=== PATIENT | male | born 1955 | race African-American/Black ===

== ENCOUNTER 2019-02-01 17:48 | Emergency (ER) | payer MEDICARE, MEDICAID ==
[~2019-02-01] VITALS: Ht 180.3 cm; Wt 111.0 kg
[2019-02-01] MEDS ORDERED: IBUPROFEN 800MG TABLET PO ONE (19:00)
[2019-02-01 19:43] LABS: BASOPHILS % 0.4 % (0.0-2.0); HEMATOCRIT. 37.8 % (42.0-52.0); HEMOGLOBIN. 12.4 g/dL (14.0-18.0); LYMPHOCYTES % 18.1 % (20.0-50.0); MEAN CORPUSCULAR HEMOGLOBIN 28.7 pg (28.0-32.0); MEAN CORPUSCULAR VOLUME 87.4 fL (80.0-94.0); MEAN PLATELET VOLUME 7.1 fl (7.4-10.4); MONOCYTES % 9.7 % (2.0-8.0); NEUTROPHILS % 69.8 % (40.0-76.0); PLATELET 195 x1000/uL (130-400); RED BLOOD CELL COUNT 4.32 mill/uL (4.7-6.1); RED CELL DISTRIBUTION WIDTH 13.7 % (11.6-14.6)
[2019-02-01 19:47] LABS: CHLORIDE 109 mEq/L (98-107)
[2019-02-01 19:50] LABS: ETHANOL BLOOD < 10 mg/dL
[2019-02-01 19:51] LABS: D-DIMER 1.32 mg/L FEU (<0.50); INR 1.1; PARTIAL THROMBOPLASTIN TIME 26.4 sec (23.4-31.0); PROTHROMBIN TIME 11.4 sec (9.6-11.0)
[2019-02-01 19:55] LABS: CREATINE KINASE 339 IU/L (39-308)
[2019-02-01 19:57] LABS: CREATINE KINASE MB FRACTION 2.5 ng/mL (0.5-3.6)
[2019-02-01 20:02] LABS: CLARITY URINE CLEAR (CLEAR); COLOR URINE DARK YELLOW (YELLOW); KETONES URINE TRACE (NEGATIVE); LEUKOCYTE ESTERASE URINE NEGATIVE (NEGATIVE); NITRITE URINE NEGATIVE (NEGATIVE); OCCULT BLOOD URINE NEGATIVE (NEGATIVE); PROTEIN URINE NEGATIVE (NEGATIVE); SPECIFIC GRAVITY URINE 1.033 (1.005-1.030)
[2019-02-01 20:15] LABS: *AMPHETAMINES SCREEN URINE NEGATIVE (NEGATIVE); *BARBITURATES SCREEN URINE NEGATIVE (NEGATIVE); *BENZODIAZEPINES SCREEN URINE NEGATIVE (NEGATIVE); *COCAINE SCREEN URINE NEGATIVE (NEGATIVE); CANNABINOID URINE SCREEN NEGATIVE (NEGATIVE); METHADONE URINE SCREEN NEGATIVE (NEGATIVE); OPIATES URINE SCREEN PRESUMTIVE POSITIVE (NEGATIVE); PHENCYCLIDINE URINE SCREEN NEGATIVE (NEGATIVE)
[2019-02-01 23:22] VITALS: BP 132/64
== END 2019-02-01 23:30 | disposition home or self-care (01) ==
LOC: ER 17:48
DX: M25.559 Pain in unspecified hip (principal); M19.90 Unspecified osteoarthritis, unspecified site; R60.9 Edema, unspecified; I10 Essential (primary) hypertension
CPT/HCPCS: 36415; 72170; 80305; 80320; 82550; 82553; 83880; 84484; 85379; 93970; 99284; G0480

== ENCOUNTER 2019-02-08 22:48 | Emergency (ER) | payer MEDICARE, MEDICAID ==
[~2019-02-08] VITALS: Ht 175.3 cm; Wt 100.0 kg
[2019-02-08] MEDS ORDERED: KETOROLAC 60MG/2ML VIAL IM STA (23:34)
[2019-02-08 23:59] LABS: BASOPHILS % 0.5 % (0.0-2.0); EOSINOPHILS % 2.5 % (0.0-5.0); HEMATOCRIT. 35.2 % (42.0-52.0); HEMOGLOBIN. 11.8 g/dL (14.0-18.0); LYMPHOCYTES % 18.4 % (20.0-50.0); MEAN CORPUSCULAR HEMOGLOBIN 29.1 pg (28.0-32.0); MEAN PLATELET VOLUME 7.1 fl (7.4-10.4); MONOCYTES % 10.3 % (2.0-8.0); NEUTROPHILS % 68.3 % (40.0-76.0); PLATELET 175 x1000/uL (130-400); RED BLOOD CELL COUNT 4.05 mill/uL (4.7-6.1); RED CELL DISTRIBUTION WIDTH 13.8 % (11.6-14.6)
[2019-02-09] LABS: CHLORIDE 110 mEq/L (98-107)
[2019-02-09 00:04] LABS: ETHANOL BLOOD < 10 mg/dL
[2019-02-09 00:12] LABS: CLARITY URINE CLEAR (CLEAR); COLOR URINE YELLOW (YELLOW); KETONES URINE NEGATIVE (NEGATIVE); LEUKOCYTE ESTERASE URINE NEGATIVE (NEGATIVE); NITRITE URINE NEGATIVE (NEGATIVE); OCCULT BLOOD URINE NEGATIVE (NEGATIVE); PROTEIN URINE NEGATIVE (NEGATIVE); SPECIFIC GRAVITY URINE 1.015 (1.005-1.030); UROBILINOGEN URINE 0.2 E.U./dL (0.2-1.0)
[2019-02-09 01:38] LABS: *AMPHETAMINES SCREEN URINE NEGATIVE (NEGATIVE); *BARBITURATES SCREEN URINE NEGATIVE (NEGATIVE); *COCAINE SCREEN URINE NEGATIVE (NEGATIVE)
[2019-02-09 01:39] LABS: *BENZODIAZEPINES SCREEN URINE NEGATIVE (NEGATIVE); CANNABINOID URINE SCREEN NEGATIVE (NEGATIVE); METHADONE URINE SCREEN NEGATIVE (NEGATIVE); OPIATES URINE SCREEN NEGATIVE (NEGATIVE); PHENCYCLIDINE URINE SCREEN NEGATIVE (NEGATIVE)
[2019-02-09] MEDS ORDERED: HYDRALAZINE HCL 25MG TABLET PO ONE (03:45)
[2019-02-09] MEDS ORDERED: HYDRALAZINE HCL 100MG TABLET PO ONE (09:00)
[2019-02-09 10:30] VITALS: BP 172/165
== END 2019-02-09 11:00 | disposition home or self-care (01) ==
LOC: ER 23:34
DX: N43.3 Hydrocele, unspecified (principal); F29 Unspecified psychosis not due to a substance or known physiological condition
CPT/HCPCS: 36415; 76870; 80053; 80307; 80320; 80329; 82962; 85025; 93005; 93976; 96375; 99284; J1885; G0480

== ENCOUNTER 2019-11-26 00:26 | Emergency (ER) | payer MEDICARE ==
[~2019-11-26] VITALS: Ht 182.9 cm; Wt 100.2 kg
[2019-11-26 03:16] LABS: BASOPHILS % 0.6 % (0.0-2.0); EOSINOPHILS % 1.5 % (0.0-5.0); HEMATOCRIT. 38.4 % (42.0-52.0); HEMOGLOBIN. 12.9 g/dL (14.0-18.0); LYMPHOCYTES % 23.6 % (20.0-50.0); MEAN CORPUSCULAR HEMOGLOBIN 29.5 pg (28.0-32.0); MEAN PLATELET VOLUME 7.5 fl (7.4-10.4); MONOCYTES % 10.7 % (2.0-8.0); NEUTROPHILS % 63.6 % (40.0-76.0); PLATELET 208 x1000/uL (130-400); RED BLOOD CELL COUNT 4.36 mill/uL (4.7-6.1); RED CELL DISTRIBUTION WIDTH 13.3 % (11.6-14.6)
[2019-11-26 03:23] LABS: CHLORIDE 106 mEq/L (98-107)
[2019-11-26 03:32] LABS: INR 1.1
[2019-11-26 04:22] VITALS: BP 136/79
[2019-11-26 04:23] LABS: CLARITY URINE CLEAR (CLEAR); COLOR URINE YELLOW (YELLOW); KETONES URINE NEGATIVE (NEGATIVE); LEUKOCYTE ESTERASE URINE NEGATIVE (NEGATIVE); NITRITE URINE NEGATIVE (NEGATIVE); OCCULT BLOOD URINE NEGATIVE (NEGATIVE); PH URINE 5.5 (4.5-8.0); PROTEIN URINE NEGATIVE (NEGATIVE); SPECIFIC GRAVITY URINE 1.027 (1.005-1.030)
== END 2019-11-26 04:51 | disposition home or self-care (01) ==
LOC: ER 00:26
DX: K40.90 Unilateral inguinal hernia, without obstruction or gangrene, not specified as recurrent (principal); Z98.890 Other specified postprocedural states
CPT/HCPCS: 36415; 74176; 80053; 81003; 85025; 99284

== ENCOUNTER 2021-05-24 19:48 | Emergency (ER) | payer MEDICARE ==
[~2021-05-24] VITALS: Ht 182.9 cm; Wt 103.0 kg
[2021-05-24] MEDS ORDERED: ACETAMINOPHEN 500MG TABLET PO ONE (22:45)
[2021-05-25 00:47] LABS: BASOPHILS % 0.6 % (0.0-2.0); HEMATOCRIT. 36.7 % (42.0-52.0); HEMOGLOBIN. 12.2 g/dL (14.0-18.0); LYMPHOCYTES % 25.9 % (20.0-50.0); MEAN CORPUSCULAR VOLUME 87.2 fL (80.0-94.0); MEAN PLATELET VOLUME 7.1 fl (7.4-10.4); MONOCYTES % 10.7 % (2.0-8.0); NEUTROPHILS % 60.8 % (40.0-76.0); PLATELET 205 x1000/uL (130-400); RED CELL DISTRIBUTION WIDTH 13.2 % (11.6-14.6)
[2021-05-25 00:50] LABS: CHLORIDE 106 mEq/L (98-107)
[2021-05-25] MEDS ORDERED: CEPHALEXIN 250MG CAPSULE PO ONE (01:00)
[2021-05-25] MEDS ORDERED: CEPH500C2 MT (01:21)
[2021-05-25] MEDS ORDERED: ACET-2708 MT (01:21)
[2021-05-25 01:37] VITALS: BP 133/88
== END 2021-05-25 01:56 | disposition home or self-care (01) ==
LOC: ER 19:48
DX: R60.0 Localized edema (principal); L03.116 Cellulitis of left lower limb; L03.115 Cellulitis of right lower limb; Z98.890 Other specified postprocedural states
CPT/HCPCS: 36415; 71045; 80053; 83880; 84484; 85025; 93005; 93970; 99285

== ENCOUNTER 2021-06-16 22:05 | Emergency (ER) | payer MEDICARE ==
[~2021-06-16] VITALS: Ht 172.7 cm; Wt 105.0 kg
[~2021-06-16 22:05] MED LIST: ACET-2708 MT; CEPH500C2 MT
[2021-06-16 22:31] VITALS: BP 149/74
[2021-06-16] MEDS ORDERED: ACETAMINOPHEN 325MG TABLET PO ONE (22:45)
[2021-06-16 23:44] LABS: BASOPHILS % 0.4 % (0.0-2.0); EOSINOPHILS % 1.4 % (0.0-5.0); HEMATOCRIT. 38.1 % (42.0-52.0); HEMOGLOBIN. 12.6 g/dL (14.0-18.0); LYMPHOCYTES % 16.6 % (20.0-50.0); MEAN CORPUSCULAR HEMOGLOBIN 29.3 pg (28.0-32.0); MEAN CORPUSCULAR VOLUME 88.7 fL (80.0-94.0); MEAN PLATELET VOLUME 7.7 fl (7.4-10.4); MONOCYTES % 7.2 % (2.0-8.0); NEUTROPHILS % 74.4 % (40.0-76.0); PLATELET 246 x1000/uL (130-400); RED CELL DISTRIBUTION WIDTH 13.1 % (11.6-14.6)
[2021-06-16 23:56] LABS: CHLORIDE 108 mEq/L (98-107)
== END 2021-06-17 01:33 | disposition home or self-care (01) ==
LOC: ER 22:05
DX: M79.604 Pain in right leg (principal)
CPT/HCPCS: 36415; 80053; 85025; 93971; 99284

== ENCOUNTER 2021-07-13 01:10 | Emergency (ER) | payer MEDICARE ==
[~2021-07-13] VITALS: Ht 185.4 cm; Wt 105.0 kg
[2021-07-13] MEDS ORDERED: ACETAMINOPHEN 325MG TABLET PO ONE (01:45)
[2021-07-13 06:15] VITALS: BP 144/74
[2021-07-13] MEDS ORDERED: ACET-2708 MT (10:18)
[2021-07-13] MEDS ORDERED: LIDO1ADH5 TP (10:19)
== END 2021-07-13 06:43 | disposition home or self-care (01) ==
LOC: ER 01:10
DX: K40.90 Unilateral inguinal hernia, without obstruction or gangrene, not specified as recurrent (principal); M79.604 Pain in right leg; M79.605 Pain in left leg
CPT/HCPCS: 76870; 93970; 93976; 99285

== ENCOUNTER 2021-07-13 08:16 | Emergency (ER) | payer MEDICARE, MEDICAID ==
[~2021-07-13] VITALS: Ht 167.6 cm; Wt 100.0 kg
[2021-07-13] MEDS ORDERED: LIDOCAINE 5% PATCH TOP SCH (09:15)
[2021-07-13] MEDS ORDERED: ACETAMINOPHEN 325MG TABLET PO ONE (09:15)
[2021-07-13] MEDS ORDERED: KETOROLAC 60MG/2ML VIAL IM ONE (09:15)
[2021-07-13] MEDS ORDERED: ACET-2708 MT (10:18)
[2021-07-13] MEDS ORDERED: LIDO1ADH5 TP (10:19)
[2021-07-13 10:59] VITALS: BP 168/78
== END 2021-07-13 11:14 | disposition home or self-care (01) ==
LOC: ER 08:16
DX: M54.50 Low back pain, unspecified (principal); K40.90 Unilateral inguinal hernia, without obstruction or gangrene, not specified as recurrent; I87.2 Venous insufficiency (chronic) (peripheral)
CPT/HCPCS: 96372; 99283; J1885

== ENCOUNTER 2021-08-07 09:45 | Emergency (ER) | payer MEDICARE, MEDICAID ==
[~2021-08-07] VITALS: Ht 172.7 cm; Wt 91.0 kg
[~2021-08-07 09:45] MED LIST changes: +LIDO1ADH5 TP
[2021-08-07 09:58] VITALS: BP 159/80
[2021-08-07] MEDS ORDERED: ACETAMINOPHEN 325MG TABLET PO ONE (10:45)
== END 2021-08-07 10:58 | disposition home or self-care (01) ==
LOC: ER 09:45
DX: M54.9 Dorsalgia, unspecified (principal); Z98.890 Other specified postprocedural states
CPT/HCPCS: 99282

== ENCOUNTER 2021-09-10 22:07 | Emergency (ER) | payer MEDICARE, MEDICAID ==
[~2021-09-10] VITALS: Ht 180.3 cm; Wt 87.0 kg
[2021-09-11 03:11] LABS: BASOPHILS % 0.4 % (0.0-2.0); EOSINOPHILS % 1.1 % (0.0-5.0); HEMATOCRIT. 37.1 % (42.0-52.0); HEMOGLOBIN. 12.5 g/dL (14.0-18.0); LYMPHOCYTES % 20.2 % (20.0-50.0); MEAN CORPUSCULAR HEMOGLOBIN 29.2 pg (28.0-32.0); MEAN CORPUSCULAR VOLUME 86.5 fL (80.0-94.0); MEAN PLATELET VOLUME 7.3 fl (7.4-10.4); MONOCYTES % 12.1 % (2.0-8.0); NEUTROPHILS % 66.2 % (40.0-76.0); PLATELET 204 x1000/uL (130-400); RED BLOOD CELL COUNT 4.29 mill/uL (4.7-6.1); RED CELL DISTRIBUTION WIDTH 13.3 % (11.6-14.6)
[2021-09-11 03:26] LABS: CHLORIDE 108 mEq/L (98-107)
[2021-09-11 03:32] LABS: ETHANOL BLOOD < 10 mg/dL
[2021-09-11] MEDS ORDERED: ASPIRIN 325MG EC TABLET PO ONE (04:00)
[2021-09-11] MEDS ORDERED: ENOXAPARIN 80MG/0.8ML SYR SUBCUT ONE (04:15)
[2021-09-11] MEDS ORDERED: DILTIAZEM HCL 5MG/ML 5ML VIAL IV ONE (06:00)
[2021-09-11 08:58] VITALS: BP 153/83
== END 2021-09-11 09:46 | disposition left against medical advice (07) ==
LOC: ER 22:07 → CANBEDREQ 09-11 09:34 → ER 09-11 09:46
DX: N50.89 Other specified disorders of the male genital organs (principal); M79.89 Other specified soft tissue disorders; I48.91 Unspecified atrial fibrillation; Z98.890 Other specified postprocedural states
CPT/HCPCS: 36415; 70450; 71045; 76870; 80053; 80320; 83605; 83880; 84484; 85025; 93005; 93970; 93976; 96372; 99285; J1650; G0480

== ENCOUNTER 2021-11-19 23:53 | Emergency (ER) | payer MEDICARE, MEDICAID ==
[~2021-11-19] VITALS: Ht 182.9 cm; Wt 102.0 kg
[2021-11-20] MEDS ORDERED: FUROSEMIDE 40MG/4ML VIAL IVP ONE (01:45)
[2021-11-20 02:20] VITALS: BP 133/68
[2021-11-20 02:38] LABS: BASOPHILS % 0.3 % (0.0-2.0); HEMATOCRIT. 35.8 % (42.0-52.0); LYMPHOCYTES % 23.9 % (20.0-50.0); MEAN CORPUSCULAR HEMOGLOBIN 29.4 pg (28.0-32.0); MEAN CORPUSCULAR VOLUME 87.4 fL (80.0-94.0); MONOCYTES % 10.5 % (2.0-8.0); NEUTROPHILS % 63.3 % (40.0-76.0); PLATELET 184 x1000/uL (130-400); RED BLOOD CELL COUNT 4.09 mill/uL (4.7-6.1); RED CELL DISTRIBUTION WIDTH 13.5 % (11.6-14.6)
[2021-11-20 02:45] LABS: CHLORIDE 106 mEq/L (98-107)
[2021-11-20] MEDS ORDERED: FURO-151 MT (03:46)
== END 2021-11-20 04:54 | disposition home or self-care (01) ==
LOC: ER 23:53
DX: R60.0 Localized edema (principal)
CPT/HCPCS: 36415; 71045; 80053; 83880; 85025; 93005; 96374; 99285; J1940

== ENCOUNTER 2021-12-09 00:23 | Emergency (ER) | payer MEDICARE, MEDICAID ==
[~2021-12-09] VITALS: Ht 175.3 cm; Wt 98.8 kg
[~2021-12-09 00:23] MED LIST changes: +FURO-151 MT
[2021-12-09 02:22] VITALS: BP 123/71
== END 2021-12-09 02:22 | disposition home or self-care (01) ==
LOC: ER 00:23
DX: Z13.9 Encounter for screening, unspecified (principal); Z98.890 Other specified postprocedural states
CPT/HCPCS: 99281

== ENCOUNTER 2021-12-15 03:25 | Emergency (ER) | payer MEDICARE, MEDICAID ==
[~2021-12-15] VITALS: Ht 182.9 cm; Wt 98.0 kg
[2021-12-15 03:43] VITALS: BP 140/62
[2021-12-15] MEDS ORDERED: HYDR-4622 TP ×3 (05:06→05:31)
[2021-12-15] MEDS ORDERED: FURO-151 PO ×3 (05:06→05:31)
[2021-12-15] MEDS ORDERED: CLAR10 PO ×3 (05:06→05:31)
== END 2021-12-15 05:37 | disposition home or self-care (01) ==
LOC: ER 03:25
DX: R60.0 Localized edema (principal); G89.29 Other chronic pain; I87.2 Venous insufficiency (chronic) (peripheral)
CPT/HCPCS: 99283

== ENCOUNTER 2022-01-09 01:56 | Emergency (ER) | payer MEDICARE, MEDICAID ==
[~2022-01-09] VITALS: Ht 182.9 cm; Wt 96.0 kg
[~2022-01-09 01:56] MED LIST changes: +CLAR10 PO; +FURO-151 PO; +HYDR-4622 TP
[2022-01-09] MEDS ORDERED: TOPUD PO (07:24)
[2022-01-09 10:15] VITALS: BP 150/75
== END 2022-01-09 10:16 | disposition home or self-care (01) ==
LOC: ER 02:16
DX: N50.812 Left testicular pain (principal); N50.811 Right testicular pain; I49.9 Cardiac arrhythmia, unspecified
CPT/HCPCS: 76870; 93005; 93976; 99284

== ENCOUNTER 2022-01-19 23:45 | Emergency (ER) | payer MEDICARE, MEDICAID ==
[~2022-01-19] VITALS: Ht 182.9 cm; Wt 89.0 kg
[~2022-01-19 23:45] MED LIST changes: +TOPUD PO
[2022-01-20 00:01] VITALS: BP 134/67
== END 2022-01-20 05:20 | disposition left against medical advice (07) ==
LOC: ER 23:45
DX: Z53.21 Procedure and treatment not carried out due to patient leaving prior to being seen by health care provider (principal)
CPT/HCPCS: 99281

== ENCOUNTER 2022-02-10 05:52 | Emergency (ER) | payer MEDICAID, MEDICARE ==
[~2022-02-10] VITALS: Ht 180.3 cm; Wt 100.0 kg
[2022-02-10 06:48] VITALS: BP 150/70
[2022-02-10] MEDS ORDERED: ACETAMINOPHEN 325MG TABLET PO ONE (08:30)
[2022-02-10 09:28] LABS: CLARITY URINE CLEAR (CLEAR); COLOR URINE YELLOW (YELLOW); KETONES URINE TRACE (NEGATIVE); LEUKOCYTE ESTERASE URINE NEGATIVE (NEGATIVE); NITRITE URINE NEGATIVE (NEGATIVE); OCCULT BLOOD URINE NEGATIVE (NEGATIVE); PH URINE 5.5 (4.5-8.0); PROTEIN URINE TRACE (NEGATIVE); SPECIFIC GRAVITY URINE 1.028 (1.005-1.030); UROBILINOGEN URINE 0.2 E.U./dL (0.2-1.0)
[2022-02-24] MEDS ORDERED: GABA100C MT ×2 (05:43)
== END 2022-02-10 10:50 | disposition home or self-care (01) ==
LOC: ER 05:52
DX: M25.562 Pain in left knee (principal); M25.561 Pain in right knee; Z79.899 Other long term (current) drug therapy
CPT/HCPCS: 73560; 81003; 99284

== ENCOUNTER 2022-02-24 03:58 | Emergency (ER) | payer MEDICAID, MEDICARE ==
[~2022-02-24] VITALS: Ht 175.3 cm; Wt 93.0 kg
[2022-02-24 05:14] LABS: BASOPHILS % 0.4 % (0.0-2.0); EOSINOPHILS % 1.4 % (0.0-5.0); HEMATOCRIT. 34.8 % (42.0-52.0); HEMOGLOBIN. 11.5 g/dL (14.0-18.0); LYMPHOCYTES % 25.4 % (20.0-50.0); MEAN CORPUSCULAR VOLUME 87.7 fL (80.0-94.0); MEAN PLATELET VOLUME 7.2 fl (7.4-10.4); NEUTROPHILS % 62.8 % (40.0-76.0); PLATELET 238 x1000/uL (130-400); RED BLOOD CELL COUNT 3.97 mill/uL (4.7-6.1); RED CELL DISTRIBUTION WIDTH 13.5 % (11.6-14.6)
[2022-02-24 05:16] LABS: CHLORIDE 107 mEq/L (98-107)
[2022-02-24 05:25] LABS: ETHANOL BLOOD < 10 mg/dL
[2022-02-24] MEDS ORDERED: GABA100C MT (05:43)
[2022-02-24] MEDS ORDERED: GABAPENTIN 300MG CAPSULE PO ONE (05:45)
[2022-02-24 06:04] VITALS: BP 123/72
== END 2022-02-24 06:10 | disposition home or self-care (01) ==
LOC: ER 03:58
DX: G62.9 Polyneuropathy, unspecified (principal)
CPT/HCPCS: 36415; 71045; 80053; 80307; 80320; 80329; 82140; 85025; 93005; 99285; G0480

== ENCOUNTER 2022-03-19 03:17 | Inpatient (IN) | payer MEDICARE, MEDICAID ==
[~2022-03-19] VITALS: Ht 172.7 cm; Wt 100.0 kg
[~2022-03-19 03:17] MED LIST changes: +GABA100C MT
[2022-03-19 07:13] LABS: BASOPHILS % 0.5 % (0.0-2.0); EOSINOPHILS % 2.5 % (0.0-5.0); HEMATOCRIT. 32.5 % (42.0-52.0); HEMOGLOBIN. 10.9 g/dL (14.0-18.0); LYMPHOCYTES % 30.5 % (20.0-50.0); MEAN CORPUSCULAR HEMOGLOBIN 29.8 pg (28.0-32.0); MONOCYTES % 12.1 % (2.0-8.0); NEUTROPHILS % 54.4 % (40.0-76.0); PLATELET 196 x1000/uL (130-400); RED BLOOD CELL COUNT 3.66 mill/uL (4.7-6.1); RED CELL DISTRIBUTION WIDTH 14.4 % (11.6-14.6)
[2022-03-19 07:31] LABS: CHLORIDE 108 mEq/L (98-107)
[2022-03-19] MEDS ORDERED: ONDANSETRON HCL 4MG/2ML INJ IV PRN (10:15)
[2022-03-19] MEDS ORDERED: FUROSEMIDE 100MG/10ML VIAL IVP SCH (10:15)
[2022-03-19] MEDS: ACETAMINOPHEN 325MG TABLET PO PRN (11:27)
[2022-03-19] MEDS: FUROSEMIDE 100MG/10ML VIAL IVP SCH ×2 (11:27→18:34)
[2022-03-19 12:00] VITALS: BP 121/75
[2022-03-19] MEDS ORDERED: PNEUMOCOCCAL 23-VAL P-SAC VAC 0.5 ML IM ONE (15:15)
[2022-03-19 16:00] VITALS: BP 158/84
[2022-03-19] MEDS ORDERED: HYDRALAZINE 20MG/ML VIAL IV PRN (18:00)
[2022-03-19 20:00] VITALS: BP 124/67
[2022-03-20] VITALS: BP 123/80
[2022-03-20 04:00] VITALS: BP 138/66
[2022-03-20] MEDS: FUROSEMIDE 100MG/10ML VIAL IVP SCH (06:03)
[2022-03-20 06:32] LABS: BASOPHILS % 0.2 % (0.0-2.0); EOSINOPHILS % 1.7 % (0.0-5.0); HEMATOCRIT. 38.8 % (42.0-52.0); HEMOGLOBIN. 13.3 g/dL (14.0-18.0); LYMPHOCYTES % 15.3 % (20.0-50.0); MEAN CORPUSCULAR HEMOGLOBIN 30.3 pg (28.0-32.0); MEAN CORPUSCULAR VOLUME 88.6 fL (80.0-94.0); MEAN PLATELET VOLUME 7.4 fl (7.4-10.4); MONOCYTES % 13.2 % (2.0-8.0); NEUTROPHILS % 69.6 % (40.0-76.0); PLATELET 222 x1000/uL (130-400); RED BLOOD CELL COUNT 4.38 mill/uL (4.7-6.1); RED CELL DISTRIBUTION WIDTH 14.4 % (11.6-14.6)
[2022-03-20 06:56] LABS: CHLORIDE 99 mEq/L (98-107)
[2022-03-20 08:00] VITALS: BP 137/74
[2022-03-20] MEDS: ASPIRIN 81MG TABLET PO SCH (09:44)
[2022-03-20] MEDS: ACETAMINOPHEN 325MG TABLET PO PRN (09:44)
[2022-03-20 12:00] VITALS: BP 99/59
[2022-03-20] MEDS: FUROSEMIDE 40MG/4ML VIAL IVP SCH ×2 (12:00→12:23)
[2022-03-20] MEDS ORDERED: POTASSIUM CHLORIDE 20MEQ TABLET SR PO NR (12:00)
[2022-03-20] MEDS: GABAPENTIN 100MG CAPSULE PO SCH ×2 (12:23→12:28)
[2022-03-20] MEDS: ENOXAPARIN 30MG/0.3ML SYR SUBCUT SCH ×3 (12:28→23:13)
[2022-03-20 16:00] VITALS: BP 94/52
[2022-03-20 18:01] LABS: CLARITY URINE CLEAR (CLEAR); COLOR URINE YELLOW (YELLOW); KETONES URINE NEGATIVE (NEGATIVE); LEUKOCYTE ESTERASE URINE NEGATIVE (NEGATIVE); NITRITE URINE NEGATIVE (NEGATIVE); OCCULT BLOOD URINE NEGATIVE (NEGATIVE); PROTEIN URINE NEGATIVE (NEGATIVE); SPECIFIC GRAVITY URINE 1.006 (1.005-1.030); UROBILINOGEN URINE 0.2 E.U./dL (0.2-1.0)
[2022-03-20 18:03] LABS: T4 FREE 0.97 ng/dL (0.76-1.46)
[2022-03-20 18:15] LABS: *AMPHETAMINES SCREEN URINE NEGATIVE (NEGATIVE); *BARBITURATES SCREEN URINE NEGATIVE (NEGATIVE); *BENZODIAZEPINES SCREEN URINE NEGATIVE (NEGATIVE); *COCAINE SCREEN URINE NEGATIVE (NEGATIVE); CANNABINOID URINE SCREEN NEGATIVE (NEGATIVE); METHADONE URINE SCREEN NEGATIVE (NEGATIVE); OPIATES URINE SCREEN NEGATIVE (NEGATIVE); PHENCYCLIDINE URINE SCREEN NEGATIVE (NEGATIVE)
[2022-03-20 19:48] VITALS: BP 101/66
[2022-03-21] VITALS: BP 118/59
[2022-03-21 04:00] VITALS: BP 103/58
[2022-03-21 06:45] LABS: BASOPHILS % 0.4 % (0.0-2.0); EOSINOPHILS % 1.4 % (0.0-5.0); HEMOGLOBIN. 12.1 g/dL (14.0-18.0); LYMPHOCYTES % 26.8 % (20.0-50.0); MEAN CORPUSCULAR HEMOGLOBIN 29.3 pg (28.0-32.0); MEAN CORPUSCULAR VOLUME 89.8 fL (80.0-94.0); MEAN PLATELET VOLUME 7.3 fl (7.4-10.4); NEUTROPHILS % 59.4 % (40.0-76.0); PLATELET 228 x1000/uL (130-400); RED BLOOD CELL COUNT 4.12 mill/uL (4.7-6.1); RED CELL DISTRIBUTION WIDTH 14.5 % (11.6-14.6)
[2022-03-21 06:50] LABS: CHLORIDE 100 mEq/L (98-107)
[2022-03-21 08:00] VITALS: BP 112/59
[2022-03-21] MEDS: ASPIRIN 81MG TABLET PO SCH (08:37)
[2022-03-21] MEDS: FUROSEMIDE 40MG/4ML VIAL IVP SCH (08:37)
[2022-03-21] MEDS: GABAPENTIN 100MG CAPSULE PO SCH ×3 (08:39→18:30)
[2022-03-21 12:00] VITALS: BP 117/64
[2022-03-21] MEDS: ENOXAPARIN 30MG/0.3ML SYR SUBCUT SCH (12:56)
[2022-03-21] MEDS ORDERED: POTASSIUM CHLORIDE 20MEQ TABLET SR PO NR (13:00)
[2022-03-21] MEDS ORDERED: ASPI-1160 PO (13:09)
[2022-03-21] MEDS ORDERED: FURO-151 MT (13:09)
[2022-03-21] MEDS ORDERED: GABA100C MT (13:09)
[2022-03-21] MEDS ORDERED: POTA8CAP20 PO (13:10)
[2022-03-21 16:00] VITALS: BP 101/66
[2022-03-21 20:00] VITALS: BP 98/50
[2022-03-21] MEDS ORDERED: MAGNESIUM HYDROXIDE 400MG/5ML 30ML UDC PO PRN (21:45)
[2022-03-22] VITALS: BP 120/57
[2022-03-22] MEDS: ENOXAPARIN 30MG/0.3ML SYR SUBCUT SCH ×3 (01:23→21:27)
[2022-03-22 04:00] VITALS: BP 115/58
[2022-03-22] MEDS: ACETAMINOPHEN 325MG TABLET PO PRN (04:16)
[2022-03-22 08:00] VITALS: BP 114/56
[2022-03-22] MEDS: FUROSEMIDE 40MG/4ML VIAL IVP SCH (09:48)
[2022-03-22] MEDS: ASPIRIN 81MG TABLET PO SCH (09:49)
[2022-03-22] MEDS: GABAPENTIN 100MG CAPSULE PO SCH ×3 (09:50→16:23)
[2022-03-22 12:00] VITALS: BP 102/59
[2022-03-22 16:09] VITALS: BP 102/65
[2022-03-22] MEDS: NYSTATIN 100,000 UNITS/GM CREAM 15GM TOP SCH (16:23)
[2022-03-22] MEDS ORDERED: NYSTATIN 100,000 UNITS/GM CREAM 15GM TOP SCH (17:00)
[2022-03-22] MEDS ORDERED: POTASSIUM CHLORIDE 20MEQ TABLET SR PO NR (22:30)
[2022-03-23 04:00] VITALS: BP 127/55
[2022-03-23 08:00] VITALS: BP 119/65
[2022-03-23] MEDS ORDERED: POTASSIUM CHLORIDE 20MEQ TABLET SR PO ONE (09:00)
[2022-03-23] MEDS: GABAPENTIN 100MG CAPSULE PO SCH ×2 (09:48→12:44)
[2022-03-23] MEDS: NYSTATIN 100,000 UNITS/GM CREAM 15GM TOP SCH ×2 (09:48→12:45)
[2022-03-23] MEDS: FUROSEMIDE 40MG/4ML VIAL IVP SCH (09:48)
[2022-03-23] MEDS: ASPIRIN 81MG TABLET PO SCH (09:48)
[2022-03-23 12:00] VITALS: BP 125/62
[2022-03-23] MEDS: ENOXAPARIN 30MG/0.3ML SYR SUBCUT SCH (12:44)
[2022-03-23 16:00] VITALS: BP 118/63
[2022-03-23 17:05] VITALS: BP 118/63
[2022-03-23 17:10] VITALS: BP 118/63
== END 2022-03-23 19:20 | disposition home health service (06) | DRG 291 ==
LOC: ER 03:17 → 8WST 09:30 → EDBEDREQ 09:42 → ENRESERV 10:08
PROVIDERS: ADMIT Internal Medicine; ATTEND Internal Medicine
DX: I11.0 Hypertensive heart disease with heart failure (principal); I50.33 Acute on chronic diastolic (congestive) heart failure; E66.9 Obesity, unspecified; D72.819 Decreased white blood cell count, unspecified; D64.9 Anemia, unspecified; E87.8 Other disorders of electrolyte and fluid balance, not elsewhere classified; Z68.33 Body mass index [BMI] 33.0-33.9, adult; Z79.899 Other long term (current) drug therapy
CPT/HCPCS: 36415; 71045; 80048; 80053; 80061; 80305; 81003; 83735; 83880; 84132; 84439; 84443; 84484; 85025; 93005; 93306; 93880; 97162; 99285; J0360; J1650; J1940; J2405

== ENCOUNTER 2022-03-25 06:01 | Emergency (ER) | payer MEDICARE, MEDICAID ==
[~2022-03-25] VITALS: Ht 182.9 cm; Wt 77.7 kg
[~2022-03-25 06:01] MED LIST changes: -ACET-2708 MT; +ASPI-1160 PO; -CEPH500C2 MT; +POTA8CAP20 PO; -TOPUD PO
[2022-03-25 06:15] VITALS: BP 143/68
[2022-03-25] MEDS ORDERED: GABA-529 PO ×3 (06:42→06:46)
[2022-03-25] MEDS ORDERED: ASPI-1497 PO ×3 (06:42→06:46)
[2022-03-25] MEDS ORDERED: FURO40TA5 PO ×3 (06:42→06:46)
[2022-03-25] MEDS ORDERED: POTA8CAP20 PO ×3 (06:42→06:46)
== END 2022-03-25 06:58 | disposition home or self-care (01) ==
LOC: ER 06:01
DX: Z76.0 Encounter for issue of repeat prescription (principal); I25.10 Atherosclerotic heart disease of native coronary artery without angina pectoris; Z79.82 Long term (current) use of aspirin; Z98.890 Other specified postprocedural states
CPT/HCPCS: 99281

== ENCOUNTER 2022-06-09 14:32 | Emergency (ER) | payer MEDICARE, MEDICAID ==
[~2022-06-09] VITALS: Ht 167.6 cm; Wt 80.0 kg
[~2022-06-09 14:32] MED LIST changes: +ASPI-1497 PO; +FURO40TA5 PO; +GABA-529 PO
[2022-06-09] MEDS ORDERED: FURO40TA5 MT (18:34)
[2022-06-09 19:18] VITALS: BP 138/75
== END 2022-06-09 19:47 | disposition home or self-care (01) ==
LOC: ER 14:32
DX: Z76.0 Encounter for issue of repeat prescription (principal); I10 Essential (primary) hypertension; Z79.899 Other long term (current) drug therapy
CPT/HCPCS: 99281

== ENCOUNTER 2022-07-14 04:59 | Emergency (ER) | payer MEDICARE, MEDICAID ==
[~2022-07-14] VITALS: Ht 182.9 cm; Wt 102.0 kg
[~2022-07-14 04:59] MED LIST changes: +FURO40TA5 MT
[2022-07-14 05:22] VITALS: BP 139/74
[2022-07-14] MEDS ORDERED: IBUPROFEN 600MG TABLET PO ONE (10:00)
[2022-07-14] MEDS ORDERED: IBUP-2029 MT (10:08)
== END 2022-07-14 10:40 | disposition home or self-care (01) ==
LOC: ER 04:59
DX: M25.561 Pain in right knee (principal); Z79.899 Other long term (current) drug therapy
CPT/HCPCS: 99282

== ENCOUNTER 2022-09-17 13:54 | Emergency (ER) | payer MEDICARE, MEDICAID ==
[~2022-09-17] VITALS: Ht 180.3 cm; Wt 89.0 kg
[~2022-09-17 13:54] MED LIST changes: +IBUP-2029 MT
[2022-09-17 14:07] VITALS: BP 153/62
== END 2022-09-17 20:39 | disposition home or self-care (01) ==
LOC: ER 13:54
DX: Z00.00 Encounter for general adult medical examination without abnormal findings (principal); Z76.0 Encounter for issue of repeat prescription; Z79.82 Long term (current) use of aspirin
CPT/HCPCS: 99281

== ENCOUNTER 2022-10-23 06:41 | Emergency (ER) | payer MEDICARE, MEDICAID ==
[~2022-10-23] VITALS: Ht 182.9 cm; Wt 87.0 kg
[2022-10-23 07:56] LABS: BASOPHILS % 0.5 % (0.0-2.0); EOSINOPHILS % 1.4 % (0.0-5.0); HEMOGLOBIN. 11.3 g/dL (14.0-18.0); LYMPHOCYTES % 21.7 % (20.0-50.0); MEAN CORPUSCULAR HEMOGLOBIN 29.4 pg (28.0-32.0); MEAN CORPUSCULAR VOLUME 88.3 fL (80.0-94.0); MEAN PLATELET VOLUME 7.2 fl (7.4-10.4); MONOCYTES % 9.7 % (2.0-8.0); NEUTROPHILS % 66.7 % (40.0-76.0); PLATELET 210 x1000/uL (130-400); RED BLOOD CELL COUNT 3.85 mill/uL (4.7-6.1); RED CELL DISTRIBUTION WIDTH 13.3 % (11.6-14.6)
[2022-10-23 08:07] LABS: CHLORIDE 109 mEq/L (98-107)
[2022-10-23] MEDS ORDERED: IBUP-2029 MT (08:23)
[2022-10-23] MEDS ORDERED: FURO-151 MT (08:23)
[2022-10-23] MEDS ORDERED: FUROSEMIDE 40MG TABLET PO ONE (08:30)
[2022-10-23] MEDS ORDERED: IBUPROFEN 600MG TABLET PO ONE (08:30)
[2022-10-23 09:12] VITALS: BP 140/74
[2022-10-23 09:19] LABS: CLARITY URINE CLEAR (CLEAR); COLOR URINE YELLOW (YELLOW); KETONES URINE NEGATIVE (NEGATIVE); LEUKOCYTE ESTERASE URINE NEGATIVE (NEGATIVE); NITRITE URINE NEGATIVE (NEGATIVE); OCCULT BLOOD URINE NEGATIVE (NEGATIVE); PH URINE 6.5 (4.5-8.0); PROTEIN URINE NEGATIVE (NEGATIVE); UROBILINOGEN URINE 0.2 E.U./dL (0.2-1.0)
== END 2022-10-23 09:13 | disposition home or self-care (01) ==
LOC: ER 06:41
DX: M79.604 Pain in right leg (principal); I11.0 Hypertensive heart disease with heart failure; I50.9 Heart failure, unspecified; Z76.0 Encounter for issue of repeat prescription
CPT/HCPCS: 36415; 80053; 81003; 85025; 99283

== ENCOUNTER 2022-11-16 00:02 | Emergency (ER) | payer MEDICARE, MEDICAID ==
[~2022-11-16] VITALS: Ht 180.3 cm; Wt 90.0 kg
[2022-11-16 00:19] VITALS: BP 137/57
[2022-11-16] MEDS ORDERED: ACETAMINOPHEN 325MG TABLET PO ONE (02:15)
[2022-11-16] MEDS ORDERED: KETOROLAC 60MG/2ML VIAL IM ONE (02:45)
== END 2022-11-16 02:45 | disposition home or self-care (01) ==
LOC: ER 00:02
DX: M25.561 Pain in right knee (principal); I11.0 Hypertensive heart disease with heart failure; I50.9 Heart failure, unspecified; Z79.899 Other long term (current) drug therapy; Z79.82 Long term (current) use of aspirin
CPT/HCPCS: 96372; 99283; J1885

== ENCOUNTER 2022-12-08 00:55 | Emergency (ER) | payer MEDICARE, MEDICAID ==
[~2022-12-08] VITALS: Ht 180.3 cm; Wt 82.4 kg
[2022-12-08 01:22] VITALS: O2SAT 100
[2022-12-08 05:35] LABS: BASOPHILS % 0.8 % (0.0-2.0); HEMATOCRIT. 33.6 % (42.0-52.0); HEMOGLOBIN. 11.4 g/dL (14.0-18.0); LYMPHOCYTES % 32.9 % (20.0-50.0); MEAN CORPUSCULAR HEMOGLOBIN 30.1 pg (28.0-32.0); MEAN CORPUSCULAR VOLUME 88.4 fL (80.0-94.0); MEAN PLATELET VOLUME 7.2 fl (7.4-10.4); MONOCYTES % 11.7 % (2.0-8.0); NEUTROPHILS % 52.6 % (40.0-76.0); PLATELET 179 x1000/uL (130-400); RED CELL DISTRIBUTION WIDTH 13.5 % (11.6-14.6)
[2022-12-08 05:37] LABS: CHLORIDE 110 mEq/L (98-107)
[2022-12-08 08:48] VITALS: BP 166/74; PULSE 78; RESP 16; TEMP 97.9
== END 2022-12-08 09:45 | disposition left against medical advice (07) ==
LOC: ER 00:55
DX: G62.89 Other specified polyneuropathies (principal); R46.2 Strange and inexplicable behavior; D64.9 Anemia, unspecified; Z00.00 Encounter for general adult medical examination without abnormal findings; Z53.21 Procedure and treatment not carried out due to patient leaving prior to being seen by health care provider
CPT/HCPCS: 36415; 71045; 80053; 83880; 84484; 85025; 99285